=== PATIENT | male | born 1960 | race Caucasian/White ===

== ENCOUNTER 2020-05-02 10:53 | Inpatient (IN) | payer OTHER, MEDICAID ==
[~2020-05-02] VITALS: Ht 165.1 cm; Wt 89.6 kg
[2020-05-02 13:57] VITALS: BP 114/81
--- NOTE | 2020-05-02 15:25 | NUR ---
Admitted via stretcher from at 11 am. Alert and oriented X4. States was having suicidal ideation. His plan was to get a gun. He is suicidal due to living arrangement and does not like his living facility. Denies suicidal ideation currently. Uses walker. Cooperative with assessment. Breath sounds clear, no cough, heart rate regular, abdomen soft, denies tenderness on palpation. Respirations regular. Uses brief but goes to the bathroom. Says is a diabetic but is controlled with diet. Blood sugar at 79. Monitored for excessive water drinking. No pedal edema. No wounds or open areas noted. Speaks slowly but responses are appropriate. Has a history of TBI, Bipolar and Schizophrenia diagnosis, hypertension, hypperlipedemia, hyperthyroidism, COPD and Dibetes Type 11. VSS. Denies HI or AVH. States has left shoulder pain at times. Says is a former smoker and drinker. Oriented to unit. Is eager to participate in groups and patient activities. Behavior monitored. Euthymic. Says last bowel movement was 04/30/20.
[2020-05-02 19:24] VITALS: BP 122/76
--- NOTE | 2020-05-03 02:00 | NUR ---
05-02-20 CARE TRANSFERRED 1899 OBSERVED PT SITTING IN DAY ROOM SOCIALIZING WITH OTHERS. 2024 PT AAOX3, VSS, RR EVEN AND NONLABORED ON RA, PT DENIES SI/HI. PT REPORTS PAIN IN RIGHT SHOULDER RATES 8 ON 0-10 SCALE, PT REMAINES CALM AND COOPERATIVE, PT WILLING ENGAGES IN CONVERSATION. DURING MEDICATION ADMIN PT HAD NO DIFFICULTIES. LATER PT SUPINE RESTING WITH EYES CLOSED IN BED. PT NO S/S OF ACUTE DISTRESS NOTED, PT WILL CONTINUE TO BE MONITOR PER [facility] PROTOCOL.
[2020-05-03 08:49] VITALS: BP 121/70
--- NOTE | 2020-05-03 14:46 | NUR ---
Assumed care 0700. Pt. wished to sleep in a little later which he did eating about 45 minutes later than therest of the patients. Has been self sufficient in toileting-denying the need for help. Denies SI/Hi/AH/VH. No c/o pain.
[2020-05-03 19:20] VITALS: BP 143/79
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
--- NOTE | 2020-05-04 04:06 | NUR ---
05-03-20 CARE TRANSFERRED 1900 OBSERVED PT SITTING IN DAY ROOM SOCIALIZING WITH OTHERS. 2004 PT AAOX3, VSS, RR EVEN AND NONLABORED ON RA. PT REPORTED HAVING L. SHOULDER PAIN RATED 8 ON 0-10 SCALE. PT DENIES SI/HI. PT PRESENTS HAPPY, CALM AND COOPERATIVE THROUGHOUT NURSING ASSESSMENT. DURING MEDICATION ADMIN PT HAD NO DIFFICULTIES AND WAS PROFICIENT WITH SELF CARE WITH EYE DROPS. LATER NOTED PT RESTING SUPINE IN BED WITH EYES CLOSED, PT WILL CONTINUE TO BE MONITOR PER [facility] PROTOCOL.
[2020-05-04 09:01] VITALS: BP 97/50
--- NOTE | 2020-05-04 11:21 | NUR ---
Alert and orientated X 4. Denies SI/HI at this time. When asked if he had any concerns at this time, he states he would like his toenails clipped and his bed made. Fingernails and toenails clipped. Ambulating around unit with walker with regular, steady gait. Currently sleeping soundly in recliner. Breath sounds clear. Reg HR auscultated. Color pink with brisk capillary refill and palpable peripheral pulses. Independent with voiding. Active bowel sounds over soft, rounded abdomen. States he had stool yesterday. Calm and cooperative.
--- NOTE | 2020-05-04 17:43 | NUR ---
SW met with Pt to complete assessment. Pt talked about his placement and asked if SW could help him find another placement. SW informed that since he has a placement that can meet his needs SW will not be locating another facility for the Pt. SW informed when Pt goes back to his placement he could speak with SW there and his family on finding him a new placement. Pt became upset stating " fine I will just find a way to kill myself, I don't have a gun or anything". When SW asked if he had a plan Pt denied. Pt stated " I dont want to be locked up in that place I want to go to an assisted living in [facility], can we look some up while I am in your office". EMILIA again explained to the Pt the goal of going back to [facility]. Pt stood up and started to walk out of SW office, then sat and asked if SW could find him another place. EMILIA ended the meeting and informed Pt's discharge plan.
[2020-05-04 19:42] VITALS: BP 139/76
[2020-05-05 01:10] VITALS: BP 139/76
--- NOTE | 2020-05-05 03:23 | NUR ---
Assumed care on 05/04/20 @ 19:15, in the mileu, ambulating from room to dayroom. Socializing with peers and displaying a bright affect when addressed by staff. A&O x 3. Oriented to Person, date and place. Reports x3 BM yesterday and a small BM today. Retired to bed after TV was turned off @ 2200, requested that his covers be pulled up after he got in bed, this care provided. Has slept soundly up to this writing, bed in low position, respirations even and unlabored, eyes closed.
[2020-05-05 07:35] VITALS: BP 98/49
--- NOTE | 2020-05-05 13:48 | NUR ---
EMILIA met with the Pt and the DON at [facility] [place], in and effort to air grivences and begin to work out some issues. The Pt;'s issues consisted of his bed not being made, the food not being good, staff not answering call lights in 10 mins. [facility] expressed the Pt is not patient and want his request met immediatley. SW spoke with the Pt about resonable expectations for staff at the senior living and respect. The Pt became upset stating " kin folks every body is kin folks and they don't like me because I am [facility]. The Pt then got up and walked out to the SW office. SW ended the call with [facility] then went to the [facility] area to talk to the Pt. The Pt continued to express dicontentment with the senior living. SW provided emotional support and worked with Pt through what he can and cannot control. SW encouraged Pt to speak to the SW at the senior living in an effort to resolve conflicts that may arise with staff or conditions at the facility. Pt will be d/c 05/08/2020 @ 1300. [facility] of will provide transportation. @
--- NOTE | 2020-05-05 14:23 | NUR ---
Alert and orientated X4. Up and ambulating with walker with slow, steady gait. Denies SI/HI. Conversive with staff and peers, participating in groups. Eating 100% of meals without assistance. Breath sounds clear. Reg HR auscultated. Color pink with brisk capillary refill and palpable peripheral pulses. Independent with voiding. Active bowel sounds over soft, rounded abdomen.
[2020-05-05 19:16] VITALS: BP 154/91
[2020-05-05 21:41] VITALS: BP 154/91
--- NOTE | 2020-05-06 02:52 | NUR ---
Assumed care of patient this pm shift. Patient in good spirits sitting in the mileu. Patient is alert and oriented x3. Patient takes medications whole with thin fluids. Patients affect is happy. Patient ambulates with a walker and has a steady gait. Patient can toilet himself. Patients assessment shows no signs of acute distress. Patient is very pleasant and cooperative. Patient requires some assistance with getting ready for bed. No concerns voiced at this time. We will continue to monitor per hospital policy.
[2020-05-06 07:15] VITALS: BP 113/54
--- NOTE | 2020-05-06 09:05 | NUR ---
ASSUMED CARE AT 0900 THIS MORNING. PT. UP, DRESSED AND IN THE DINING FOR BREAKFAST. HE WAS PLEASANT AND COOPERATIVE WITH THIS RN. HE TOOK HIS MORNING MEDICATIONS WITHOUT PROBLEMS NOTED. WHILE ASSESSING PT., HE STARTED RUBBING THIS RN'S BACK AND THEN ASKED, "ARE YOU ?" THIS RN REPLIED THAT I AM , BUT WE CAN BE FRIENDS. HE ACCEPTED THIS RESPONSE AND WENT TO HIS ROOM. HE HAS BEEN CALM WHILE ON THE UNIT. HE IS EATING WELL.
[2020-05-06 19:30] VITALS: BP 140/67
--- NOTE | 2020-05-07 02:18 | NUR ---
05-06-20 [facility] 1899 OBSERVED PT SITTING IN DAY ROOM SOCIALIZING WITH OTHERS. 1924 PT AAOX4, VSS, RR EVEN AND NONLABORED ON RA. PT DENIES SI/HI AND PAIN. PT REMAINED CALM AND COOPERATIVE THROUGHOUT NURSING ASSESSMENT. DURING MEDICATION ADMIN PT HAD NO DIFFICULTIES. LATER PT SUPINE IN BED RESTING WITH EYES CLOSED. ZERO S/S OF ACUTE DISTRESS NOTED, PT WILL CONTINUE TO BE MONITOR PER [facility] PROTOCOL.
[2020-05-07 07:44] VITALS: BP 101/55
--- NOTE | 2020-05-07 12:41 | NUR ---
Assumed care of patient at 0700. Up ad natividad. Denies SI/HI/AVH. Pleasant. Engages in conversation. Good eye contact. Euthymic. Grooming and hygiene appropriate. Speaks slowly but clearly. Took a nap mid morning. Gait steady. Ambulates with walker. Good appetite. Requesting coffee and water often. Set limits on amount of fluids given. Lungs clear. Respirations even. No respiratory distress. Alert and oriented X4. Denies pain or any discomfort.
--- NOTE | 2020-05-07 14:53 | NUR ---
PT. HAS DRANK 2 OF THE 32 OZ CUPS OF WATER. HE HAS HAD TWO 16 OZ CUPS OF COFFEE. HE ALSO HAS HAD SEVERAL MILKS, JUICES ON HIS MEAL TRAYS. HE ASKED FOR ANOTHER LARGE CUP OF COFFEE AFTER HAVING HIS SNACK. THIS TRANSFER IRON OPERATOR ASKED HIM TO WAIT A WHILE (ABOUT 1/2 HOUR) SNACKS HAVE ALREADY BEEN OUT AND HE HAS DRANK ENOUGH FOR THE MOMENT. THE PT. BECAME UPSET WITH THIS TRANSFER IRON OPERATOR. HE STATED, "I'M A SIMPLE MAN AND I DON'T OVER DRINK MY FLUIDS". HE GOT UPSET, TOOK HIS CUP AND WENT TO HIS BEDROOM.
--- NOTE | 2020-05-07 16:32 | NUR ---
Kay faxed updated including COVID results to [facility]
[2020-05-07 19:46] VITALS: BP 113/80
--- NOTE | 2020-05-08 01:28 | NUR ---
05-07-20 CARE TRANSFERRED 1899 OBSERVED PT SITTING IN DAY ROOM WATCHING TV. 1950 PT AAOX4, VSS, RR EVEN AND NONLABORED ON RA. PT DENIES ANY PAIN AND SI/HI. PT HAS REMAINED CALM AND COOPERATIVE, PT REPORTS HE IS HAPPY ABOUT GOING BACK HOME FRIDAY. DURING MEDICATION ADMIN PT HAD NO DIFFICULTIES. LATER PT WAS ASKING ABOUT HIS BLACK SHORTS, PT WAS REASSURED THAT THEY WERE IN THE DRYER AND HE WOULD HAVE THEM TOMORROW. PT BED WAS REPOSITION FOR COMFORT, DURING NEXT ROUND NOTED PT LEFT SIDE LYING RESTING IN BED WITH EYES CLOSED. ZERO S/S OF ACUTE DISTRESS NOTED, PT WILL CONTINUE TO BE MONITOR PER [facility] PROTOCOL.
[2020-05-08 07:34] VITALS: BP 100/61
[2020-05-08] MEDS ORDERED: XALATAN2.5 ML OPHTHALMIC (11:37)
[2020-05-08] MEDS ORDERED: ATORVASTATIN CA10 MG PO (11:38)
[2020-05-08] MEDS ORDERED: DEPAKOTE500 MG PO (11:39)
[2020-05-08] MEDS ORDERED: LYRICA 75 MG CA75 MG PO (11:39)
[2020-05-08] MEDS ORDERED: VITAMIN B-6100 MG PO (11:41)
[2020-05-08] MEDS ORDERED: SYNTHROID25 MC1 PO (11:42)
[2020-05-08] MEDS ORDERED: METFORMIN HCL500 MG PO (11:43)
[2020-05-08] MEDS ORDERED: PROTONIX 20 MG20 MG PO (11:43)
[2020-05-08] MEDS ORDERED: ZYPREXA 5 MG TAB5 M1 PO ×2 (11:44)
[2020-05-08] MEDS ORDERED: LEXAPRO 10 MG T10 MG PO (11:45)
[2020-05-08] MEDS ORDERED: TRAZODONE HCL50 MG PO (11:45)
[2020-05-08] MEDS ORDERED: FLOMAX0.4 MG PO (11:46)
[2020-05-08] MEDS ORDERED: COZAAR 25 MG TA25 M2 PO (11:46)
[2020-05-08] MEDS ORDERED: PT HOME MEDICATION MISCELL (11:51)
--- NOTE | 2020-05-08 14:07 | NUR ---
0700 ASSUMED CARE OF PATIENT, PATIENT IN BED AT THAT TIME. 0735 PATIENT OUT TO DAYROOM AMB WITH WALKER WITH STEADY GAIT. PATIENT ATE 100% OF BREAKFAST. MEDICATIONS GIVEN WHOLE WITHOUT DIFFICULTY. VS STABLE BP-100/61 P-83 RESP-18 TEMP-98.7 O2 SATS- 91% PATIENT ASKING FOR FLUIDS AFTER PATIENT HAS BEEN TOLD TO [facility]ICT FLUIDS. PATIENT UNABLE TO COMPREHEND. PATIENT IS ALERT AND OIENTED X4. NO C/O PAIN. PATIENT IS CALM AND COOPERATIVE. PATIENT ATE 100% OF LUNCH. DC INSTRUCTIONS GIVEN TO PATIENT BY STAFF. PATIENT DC AT 1305 VIA WC TO TRANSPORT VAN. ACCOMPANIED BY STAFF. BELONGING IN [facility] AT TIME OF DC. FACILITY CALLED AND REPORT GIVENTO TO RN.
--- NOTE | 2020-05-10 09:12 | D ---
[facility] [address] [address] DISCHARGE SUMMARY Name: NORIS DANIELS Room #: 521B-B [facility] IN M.R.#: [id number] Admission: 05/02/20 Attend Phys: Ron Rust DO Discharge: 05/08/20 Date of : 62 Report #: [id number] THIS REPORT FOR: cc: BRISA - Family physician unknown FAM - Family physician unknown Ron Rust DO ~ THIS REPORT FOR: //name// CC: Ron LEDEZMA unknown DATE OF SERVICE: 05/08/2020 INPATIENT PSYCHIATRIC DISCHARGE SUMMARY ATTENDING PHYSICIAN: Ron Rust DO ATTENDING PSYCHIATRIST: At discharge, Chelsea Hrut MD ABATTOIR SUPERVISOR: Yaneth Tyler MD DISCHARGE DIAGNOSES: As follows: Bipolar 1 disorder episode, unspecified, 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 MEDICAL DIAGNOSES: Include mild obesity, hyperlipidemia, hypothyroidism, hypertension, benign prostatic hypertrophy. DISCHARGE PLAN: The patient is discharged to [facility] in [place], [place], where he has had for long-term care. The patient is his own person and has no guardian or DPOA unfortunately and nor he wishes to appoint. He denies tobaccoism. Psychiatric and medical care will be provided by [facility]. [place], [place]. DISCHARGE MEDICATIONS: As follows: Tamsulosin 0.4 mg p.o. b.i.d. for BPH; atorvastatin 20 mg p.o. daily for hyperlipidemia; losartan 25 mg p.o. daily for hypertension; Depakote sodium 1000 mg p.o. b.i.d., last blood level on 05/03/2020 was 82; Lyrica 75 mg p.o. b.i.d. for neuropathy; Lexapro 10 mg p.o. daily for depression; trazodone 75 mg p.o. at bedtime for sleep; olanzapine 15 mg p.o. at bedtime for psychosis and mood stabilization and 5 mg p.o. daily; latanoprost drops, ophthalmic, both eyes at bedtime, 1 drop each eye, 2.5 mL drops;, pantoprazole 40 mg p.o. daily for GERD; metformin 500 mg p.o. b.i.d. with meals for diabetes; levothyroxine 25 mcg p.o. daily for hypothyroidism; pyridoxine 100 mg p.o. daily; vitamin B6 for supplementation. The patient ambulates with walker. He continues to use assistive device. Significant laboratories this admission, he was accepted from [facility], [place] [address] DISCHARGE SUMMARY Name: NORIS DANIELS Room #: 521B-B [facility] IN ..#: [id number] Admission: 05/02/20 Attend Phys: Ron Rust DO Discharge: 05/08/20 Date of : 62 Report #: [id number] so they were normal. Glucose the day of discharge with fasting was 81. REASON FOR ADMISSION: Back on the or so april is as follows: A 59-year-old male, uncertain ethnic origin, reportedly been feeling suicidal and was referred from [facility] Emergency Room. He had actually been admitted medically as well for dehydration and hyponatremia, so he was not from the ER as a medical admission from , but had psychiatric admissions earlier beginning of this year. HOSPITAL COURSE: The patient was admitted to Geriatric Psychiatry Unit and became early obvious, the patient was utilized in this admission to get a different placement at the [facility] in [place]. It was explained to the patient that particularly given the COVID-19 environment, it would be impossible to get him a placement. The patient was prepared that it was not appropriate use of the psychiatric hospitalization. When he was asked about suicidality, he would at times be vague in terminal answers yet during his first several days of admission, he had made no attempts to self-harm and neglect himself. He was kept over the weekend for good measure and discharged to [facility] of [place], [place] on . MENTAL STATUS EXAMINATION: Deferred to Dr. Hurt who discharged the patient. VITAL SIGNS: On the day of discharge, temperature 37.1, pulse 83, respirations 18, BP 100/61, O2 sat 91%. Basically, the only medication changes this admission was increasing from 500 in morning and 1000 to Depakote 2000 twice a day. His olanzapine have been increased in , so I kept that up at a total of 20 mg daily. The patient will need ongoing psychiatric followup. VITAL SIGNS: Temperature 37.1, pulse 80, respirations 18, BP 100/61, O2 sat 91%, that was 0734 this morning. PROGNOSIS: For this patient is guarded given multiple comorbidities appearing chronic mental health problems. Recommendations for the facility, consideration for pursue the guardianship, conservatorship. <ELECTRONICALLY SIGNED> By: Ron Rust DO 05/10/20911 07 33 Ron Rust DO /nt
== END 2020-05-08 13:05 | DRG 885 ==
LOC: SBH 10:53
PROVIDERS: ADMIT Psychiatry & Neurology Psychiatry; ATTEND Psychiatry & Neurology Psychiatry
DX: F31.9 Bipolar disorder, unspecified (principal); R45.851 Suicidal ideations; E66.9 Obesity, unspecified; E78.5 Hyperlipidemia, unspecified; E03.9 Hypothyroidism, unspecified; N40.0 Benign prostatic hyperplasia without lower urinary tract symptoms; J44.9 Chronic obstructive pulmonary disease, unspecified; I10 Essential (primary) hypertension; F20.9 Schizophrenia, unspecified; F29 Unspecified psychosis not due to a substance or known physiological condition; Z20.828 Contact with and (suspected) exposure to other viral communicable diseases; Z68.32 Body mass index [BMI] 32.0-32.9, adult; Z87.820 Personal history of traumatic brain injury; Z87.891 Personal history of nicotine dependence
CPT/HCPCS: 10880

== ENCOUNTER 2021-01-07 00:34 | Inpatient (IN) | payer OTHER, MEDICAID ==
[~2021-01-07] VITALS: Ht 165.1 cm; Wt 99.9 kg
[~2021-01-07 00:34] MED LIST: ATORVASTATIN CA10 MG PO; COZAAR 25 MG TA25 M2 PO; DEPAKOTE500 MG PO; FLOMAX0.4 MG PO; LEXAPRO 10 MG T10 MG PO; LYRICA 75 MG CA75 MG PO; METFORMIN HCL500 MG PO; PROTONIX 20 MG20 MG PO; PT HOME MEDICATION MISCELL; SYNTHROID25 MC1 PO; TRAZODONE HCL50 MG PO; VITAMIN B-6100 MG PO; XALATAN2.5 ML OPHTHALMIC; ZYPREXA 5 MG TAB5 M1 PO
[2021-01-08 03:28] VITALS: BP 132/71
--- NOTE | 2021-01-08 04:11 | NUR ---
Pt admitted to [facility] @ 0105am for SI with depression from [facility], Pt is A/O x 3, very pleasant, pt is impulsive, and does not like sudden changes, did not want chair moved initially from his room, Pt requires assist with standing up but once standing is pretty stable with his gait using the walker. Pt tends to forget limitations, Pt resides at [facility] of for the last two years and voiced SI to the staff at the [facility] but did not voice SI on initial admission assessment but pt does endorse depression for the last 6 months, coping mechanism for depression pt voices he uses is exercise. Pt red wallet with ID, securiti card x 2, several other cards and 91 dollars sent with security. Money counted in pt presence. Physical assessment, A/O x3, lung sounds are clear, HRR, pulses +, Abd soft NT, Active BS x 4, + 1 edema noted to bilateral lower edema, skin assessment completed and no current wounds noted and skin is warm, dry and intact, pt had assistance from PCT to BR, Pt initially ambulating into day room and received a snack once snack received pt was ready to lie down. Pt does voice feelings of hopelessness but does not endorse hallucinations currently. Denies HI, Pt has a medical Hx of DM II but does not require insulin and is not currently being treated for Diabetes, Pt is currently on a regular diet.
[2021-01-08 08:47] LABS: ABSOLUTE NEUTROPHILS 4.9 thou/uL (1.4-8.2); BASOPHILS 0.4 % (0.0-2.0); EOSINOPHILS 0.3 % (0.0-3.0); HEMATOCRIT 36.6 % (42.0-52.0); HEMOGLOBIN 11.9 gm/dL (14.0-18.0); LYMPHOCYTES 26.9 % (24.0-44.0); MCH 30.8 pg (26.0-34.0); MCHC 32.5 g/dL (28.0-37.0); MCV 94.8 fL (80.0-100.0); MONOCYTES 17.7 % (1.0-8.0); PLATELET COUNT 152 thou/uL (150-400); POLYS 54.7 % (36.0-66.0); RBC 3.86 mil/uL (4.50-6.00); RDW 13.6 % (10.5-14.5); WBC 8.9 thou/uL (4.0-11.0)
[2021-01-08 08:51] VITALS: BP 132/82
[2021-01-08 09:08] LABS: ANION GAP 11 mmol/L (7-16); BUN 19 mg/dL (7-18); CALCIUM 9.4 mg/dL (8.5-10.1); CHLORIDE 108 mmol/L (98-107); CHOLESTEROL 183 mg/dL (<200); CO2 24 mmol/L (21-32); CREATININE 1.5 mg/dL (0.7-1.3); GLUCOSE 79 mg/dL (74-106); HDL CHOLESTEROL 44 mg/dL (>40); LDL CHOLESTEROL 113 mg/dL (<100); POTASSIUM 5.2 mmol/L (3.5-5.1); SODIUM 143 mmol/L (136-145); TC:HDL 4.2 Ratio (Not establshd); TRIGLYCERIDE 132 mg/dL (<150); VLDL 26 mg/dL (<40)
[2021-01-08 10:50] VITALS: BP 132/82
--- NOTE | 2021-01-08 13:31 | NUR ---
1330 RESUMMED CARE FROM OVERNIGHT SHIFT THIS AM, PATIENT IN ROOM LYING QUIET. PATIENT ALERT ORIENTED TIMES 4 PATIENT DENIES SI/HI/AH/VH AT PRESENT. PATIENT CAME TO DAY ROOM ATE BREAKFAST TOOK MEDICATION WITHOUT INCIDENCE. PATIENTS ABDOMEN SOFT BOWEL SOUNDS PRESENT. PATIENTS LUNGS CLEAR PATIENT CALM COOPERATIVE; PATIENT HAS BEEN PARTICIPATES IN GROUPS PATIENT STATES "HE HATES HIS PLACEMENT." WILL CONTINUE TO MONITOR PATIENT FOR SAFETY AND BEHAVIORS.
[2021-01-08 19:14] VITALS: BP 117/63
--- NOTE | 2021-01-09 01:27 | NUR ---
Assume care of patient at approx 1920 hrs. Patient observed sitting in arlette chair in day room watching tv. Patient has good eye contact and is smiling. Patient wears glasses. He denies any pain, SI, HI, Depression or anxiety. He states he feels much better now that he is here at this hospital. Patient ambulates with walker and also wears a brief. He toilets himself. Pt has been compliant with all care and meds this shift. he is social with staff and peers and very friendly. Will continue to monitor and follow plan of care. Q 12 min safety checks per protocol.
[2021-01-09 03:05] LABS: GLYCOHEMOGLOBIN (HGB A1C) 5.7 % (4.8-5.6)
[2021-01-09 09:17] VITALS: BP 129/61; BP 94/46
--- NOTE | 2021-01-09 09:48 | NUR ---
Admit to [facility], depression/SI. Hx diet control DM, A1C is 5.7. LDL slight increase 113, on lipitor. Eating 100% of meals. Wt hx shows 197 lb in 04/2020. This admit has 2 different wts of 200 lb vs 220 lb. Will follow wt and intake trends, otherwise pt presents at low nutrition risk. Can continue regular diet at this time.
--- NOTE | 2021-01-09 12:22 | NUR ---
Received awake on bed. Due medications given as prescribed, able to swallow meds w/o difficulty. On room air. Vital signs stable. On regular diet- tolerating well; no nausea, no vomiting and no abdominal pain noted; encouraged and assisted in eating and drinking. Continent of bowel and bladder. Ambulating in the hallway with walker; falls bundle in place. No complains of pain made during assessment. No verbalizations of SI/HI noted. No visual, auditory and tactile hallucinations noted. No complains of chest pain, crushing sensation and heaviness. Assisted in ADLs. Cooperative in therapies. To continue monitoring patient.
[2021-01-09 19:36] VITALS: BP 146/91
--- NOTE | 2021-01-10 03:35 | NUR ---
ASSUMED CARE OF PATIENT AT 1900 01/09/2021. MR. DANIELS WAS SITTING IN THE DAYROOM WATCHING TELEVISION. HE IS A&O X4, INTERACTING WITH STAFF AND PEERS. NO DIFFICULTY WITH SWALLOWING MEDS WHOLE. LUNGS CTA, ABD SOFT, BS +, SKIN W&D. PATIENT DENIES SI/HI/AVH. GAIT WITH WALKER REMAINS SLOW BUT STEADY. TOLIET SELF X 3 DURNING SHIFT. STAFF WITH CONTINUE TO MONITOR PER [facility] PROTOCOL.
[2021-01-10 06:15] LABS: CREATININE 1.6 mg/dL (0.7-1.3)
[2021-01-10 08:00] VITALS: BP 135/60
[2021-01-10 09:03] VITALS: BP 135/60
--- NOTE | 2021-01-10 17:07 | NUR ---
Krista calm and cooperative, had meals, no n/v; sitting in the dinning room, interacting with the staff; walking at times in the hallway with a walker, steady. having dinner now in the dinning area, will keep monitoring.
--- NOTE | 2021-01-10 17:36 | NUR ---
Patient refused his insulin, psychiatrist has been reported to about it.
[2021-01-10 20:00] VITALS: BP 133/79
[2021-01-10 20:20] VITALS: BP 133/79
--- NOTE | 2021-01-10 22:42 | H ---
[facility] [place] [address] [address] [place] [address] HISTORY AND PHYSICAL Name: NORIS DANIELS Room #: 521B-B ADM IN M.R.#: [id number] Admission: 01/08/21 Attend Phys: Kamaljit Rust DO Discharge: Date of : 62 Report #: [id number] THIS REPORT FOR: cc: [facility] - Clinic physician unknown [facility] - Clinic physician unknown Kamaljit Rust DO ~ DOC #: [id number] KAMALJIT Rust DO DATE OF SERVICE: 01/08/2021 INPATIENT PSYCHIATRIC EVALUATION ATTENDING PSYCHIATRIST: Kamaljit Rust DO. MEDICAL CONSULTANTS: Gerardo Rangel M.D. and JAXON Starks. SOURCES OF INFORMATION: Interview with the patient, records from the [facility] ER, limited records from [facility]. CHIEF COMPLAINT: Depression. HISTORY OF PRESENT ILLNESS: This is a 60-year-old male who presented early Friday to the [facility] ER by ambulance from his nursing facility for concerns of depression for almost a year, 6-9 month history of worsening of mood. Interestingly, he was last hospitalized on the Senior Behavioral Health Unit at [facility] in 04/2020, so really right before this. States he believes this is secondary to chronic shoulder pain as well as unhappiness with current facility. Of note, when the patient [facility] [place], he was advised that he would need to seek a new facility with the help of social work staff from [facility]. He reports he was being "neglected" at [facility]. When I asked him to describe this, he said he would press the call button and no one would come for an extended period of time like 30 minutes. The patient endorsed to the ER history of bipolar 1 disorder, schizophrenia. He has been medication compliant and endorsed a plan at of shooting himself. He reported previous episodes of suicidal attempt by medication overdose. He denied access to firearms and denied any intent today. REVIEW OF SYSTEMS: From : CONSTITUTIONAL: Negative for chills and fever. HEENT: Negative for sore throat. Eyes: Negative for visual disturbance. RESPIRATORY: Negative for shortness of breath. CARDIOVASCULAR: Negative for chest pain. GASTROINTESTINAL: Negative for abdominal pain, nausea and vomiting. GENITOURINARY: Negative for dysuria. [facility] [address] [place] [address] HISTORY AND PHYSICAL Name: NORIS DANIELS Room #: 521B-B ADM IN M.R.#: [id number] Admission: 01/08/21 Attend Phys: Kamaljit Rust DO Discharge: Date of : 62 Report #: [id number] MUSCULOSKELETAL: Positive for arthralgias. Negative for back pain. SKIN: Negative for rash. NEUROLOGIC: Negative for headaches. PSYCHIATRIC: Positive for suicidal ideation in the ER. Denies that today. Interestingly, negative for agitation and confusion. Also, of note from the ER, the patient was not nervous or anxious. ALLERGIES: TO NEURONTIN, LITHIUM, REMERON. PAST MEDICAL HISTORY: COPD, diabetes mellitus, obesity, unspecified allergy. PSYCHIATRIC HISTORY: Bipolar 1 disorder, schizophrenia. Additional medical morbidities: Generalized headaches, high cholesterol, hypertension, thyroid disease. PAST SURGICAL HISTORY: No pertinent surgical history was noted at . SOCIAL HISTORY: He reports being a former smoker, smoked a pack and a half a day for 35 years and 7.4 years since quitting smoking, smoked in 2013. No alcohol. No recreational drug use. FAMILY HISTORY: Parkinson's disease in father. Systemic lupus erythematosus in maternal aunt. Physical exam was noted for speech mildly delayed, otherwise normal. LABORATORY DATA: From today on , white count 7.6, H and H 12.4 and 36.0, platelet count 145, slightly thrombocytopenic. Absolute monocyte count was high at 1.21. Electrolytes, mild abnormalities. Sodium 132, potassium 4.7, chloride 98, glucose 153, BUN 16, creatinine elevated at 1.43, calcium 9.8, total protein 7.0, total bilirubin 0.3, albumin 4.1, alkaline phosphatase 70, SGOT 24, ALT 14, anion gap 10. EGFR qik-Bhwzlvs-Bmraohcd 51. CK 237. Urinalysis was normal. TSH normal at 3.46. Urine drug screen was negative. Valproic acid level was normal at 86. No radiology at . EKG rate 67. Rhythm sinus. QTc 417. Interpretation is regular rate, regular rhythm, normal axis, no evidence of acute ST or T-wave changes. I reviewed the EKG, the 12-lead_ from [facility]. There is some artifact present, but I agree normal sinus rhythm, largely normal EKG. MEDICATIONS: List from [facility], atorvastatin 20 mg daily, buspirone 15 mg by mouth twice a day, Depakote delayed release 750 two times a day, latanoprost 0.005% one drop in both eyes at bedtime, levothyroxine 25 mcg by mouth in the morning. Lexapro 20 mg daily, losartan 25 mg daily, hold for SBP [facility] [address] [place] [address] HISTORY AND PHYSICAL Name: NORIS DANIELS Room #: 52-B ADM IN M.R.#: [id number] Admission: 01/08/21 Attend Phys: Kamaljit Rust, DO Discharge: Date of : 62 Report #: [id number] less than 110. Mag oxide 400 mg daily, olanzapine 15 mg at bedtime and 5 mg in the morning, Lyrica 75 mg by mouth two times a day for pain, B6 100 mg daily, Spiriva inhaled one time a day for cough, tamsulosin 0.4 mg p.o. daily, trazodone 75 mg at bedtime for insomnia, Tylenol 650 q. 6 hours p.r.n. pain. Physician at longterm I actually do not see listed. There are not any behavior notes from [facility]. VITAL SIGNS: Today, temperature 36.5, pulse 76, respirations 18, BP 132/82, O2 sat 98%. MUSCULOSKELETAL: Seated in a Vicenta chair. Gait not tested. He is ambulatory. MENTAL STATUS EXAMINATION: This is a well-developed, well-nourished, obese male appearing probably older than stated age. Attention fair. Concentration fair. Speech slow, delayed. Thought process: Linear and goal directed. Thought content: Focused on the present. No psychomotor agitation. Slight psychomotor retardation. Mood okay, appearing euthymic, congruent. Denied SI, HI. Denied auditory, visual, or tactile hallucinations. Memory not formally tested, but I believe he has had mild neurocognitive results from his previous admission. Insight limited. Judgment limited. Fund of knowledge below average. FORMULATION: A 60-year-old male sent out from [facility]. The patient has a history of bipolar disorder. The patient was discharged with bipolar 1 disorder, unspecified and mild intellectual disability in 04/2020. DIAGNOSES: At this time bipolar 1 disorder, most recent episode depressed, severe, 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 Internal Medicine kind of issues including mild acute kidney injury, hyperkalemia, was given a dose of Veltassa, diabetes mellitus, hypertension, hypothyroidism, hyperlipidemia and again obesity with a BMI of 36. PLAN: The patient is admitted voluntarily to the senior behavioral health unit. Evaluate stabilize. Regarding his medications of several comments, his Depakote level appears therapeutic. He is on 20 mg a day of olanzapine. This would roughly be maximal therapy for bipolar disorder, not just in a maintenance phase, but even in acute phase. I am concerned that his situation is that of dysfunctional coping skills, currently here at [facility], levothyroxine 25 mcg daily, atorvastatin 20 mg p.o. daily, buspirone 15 mg p.o. b.i.d., Depakote 750 mg p.o. b.i.d., Lexapro 20 mg p.o. daily, magnesium oxide 400 mg p.o. daily, olanzapine 5 mg in the morning and 15 mg at bedtime, vitamin B6 100 mg p.o. daily, tamsulosin 0.4 mg p.o. daily, latanoprost drops each eye and trazodone 75 mg . [facility] [address] [place] [address] HISTORY AND PHYSICAL Name: NORIS DANIELS Room #: 521B-B ADM IN M.R.#: [id number] Admission: 01/08/21 Attend Phys: Kamaljit Rust, Discharge: Date of : 62 Report #: [id number] I am inclined to discontinue the BuSpar just because with the abnormality of other psychopharmacology going, I do not see it being helpful, it is serotonin pathway agent, so we will keep the patient here for the next 3-4 days to make sure his mood stabilized and this is a case where this is probably given him respite. STRENGTHS: He is insured, has the nursing facility he lives at. WEAKNESSES: Poor coping skills, multiple medical comorbidities, limited. little outside social support. Greater than 60 minutes spent on this case, greater than 50% of the time spent on reviewing records, coordination of care. DO SALUD Lui/FRANCISCO/MARCOS <ELECTRONICALLY SIGNED> By: Kamaljit Rust DO 01/10/21 2242 1213 1424 Kamaljit Rust DO /nt
--- NOTE | 2021-01-11 00:54 | NUR ---
ASSUMED CARE OF PATIENT AT 1900 01/10/2021. HE IS A & 0 X 4, MOOD ELEVATED, DENIES SI, HI OR AVH. WATCHING TELEVISION IN DAYROOM, IN GUSTABO-CHAIR WITH LEGS ELEVATED, STATED "I'M WATCHING THE MOVIE AND EATING MY SNACK TODAY". SKIN WARM AND DRY, ABD SOFT + BS, HEART RRR. PATIENT STATES HE MIGHT BE GOING HOME TOMORROW. CONTINUES WITH STEADY AMBULATION WHEN USING WALKER. DENIES ANY PHYSICAL OR MENTAL ISSUES/NEEDS AT THIS TIME. STAFF WILL CONTINUE TO MONITOR PER [facility] PROTOCOL.
[2021-01-11 07:53] LABS: CALCIUM 9.3 mg/dL (8.5-10.1); CREATININE 1.3 mg/dL (0.7-1.3); POTASSIUM 4.8 mmol/L (3.5-5.1)
[2021-01-11 08:44] VITALS: BP 125/60
[2021-01-11] MEDS ORDERED: DEPAKOTE 250MG250 M1 PO (09:46)
[2021-01-11] MEDS ORDERED: LEXAPRO20 MG PO (09:47)
[2021-01-11] MEDS ORDERED: MAGNESIUM400 MG PO (09:48)
[2021-01-11 10:40] VITALS: BP 125/60
--- NOTE | 2021-01-11 12:04 | NUR ---
1200 RESUMMED CARE FROM OVERNIGHT SHIFT THIS AM, PATIENT ALERT ORIENTED TIMES 4. PATIENT DENIES SI/HI/AH/VH AT PRESENT PATIENT ATE BREAKFAST TOOK MEDICATION WITHOUT INCIDENCE. PATIENTS ABDOMEN SOFT BOWEL SOUNDS PRESENT PATIENTS LUNGS CLEAR. PATIENT CALM COOPERATIVE PATIENT HAS NOT DISPLAYED ANY BEHAVIORS. PATIENT IS DISCHARGING TO [facility], I ATTEMPTED TWICE TO CALL REPORT TO FACILITY. PATIENT DISCHARGED WITH BELONGING AND DISCHARGE INSTRUCTIONS.
--- NOTE | 2021-01-12 21:09 | D ---
[facility] [address] [address] DISCHARGE SUMMARY Name: NORIS DANIELS Room #: 521B-B DIS IN M.R.#: [id number] Admission: 01/08/21 Attend Phys: Kamaljit Rust DO Discharge: 01/11/21 Date of : 62 Report #: [id number] THIS REPORT FOR: cc: [facility] - Clinic physician unknown [facility] - Clinic physician unknown Kamaljit Rust DO ~ DOC #: [id number] KAMALJIT Rust DO DATE OF SERVICE: 01/11/2021 INPATIENT PSYCHIATRIC DISCHARGE SUMMARY ATTENDING PSYCHIATRIST: Kamaljit Rust DO RELOCATION SPECIALIST: Gerardo Rangel MD DISCHARGE DIAGNOSES: Bipolar 1 disorder, most recent episode depressed, improved now. The patient has a history of traumatic brain injury. Additionally, medical comorbidities include hyperkalemia, resolved; acute renal failure, largely resolved; diabetes, diet controlled at present; hypertension; hypothyroidism; hyperlipidemia. The patient is discharging back to [facility] in [place], [place]. Psychiatric and medical care to be provided by that facility. DISCHARGE MEDICATIONS: As follows: Tamsulosin 0.4 mg oral daily for BPH, atorvastatin calcium 20 mg a day for hyperlipidemia, losartan 25 mg oral daily for hypertension and kidney protection, Lyrica 75 mg oral twice daily for neuropathy, trazodone 75 mg oral at bedtime for sleep p.r.n., olanzapine 15 mg oral at bedtime for psychosis and mood stabilization, olanzapine 5 mg oral daily for psychosis and mood stabilization, latanoprost drops ophthalmic at 2.5 mL drops in each eye at bedtime for glaucoma I believe, levothyroxine 25 mcg oral daily for hypothyroidism, pyridoxine 100 mg oral daily for supplementation of vitamin B6, Depakote sodium 750 mg oral twice daily for mood stabilization, Lexapro 20 mg oral daily for depression, magnesium oxide 400 mg oral daily for supplementation. The patient's diet was regular. Recommend weekly blood sugar checks at this point. SIGNIFICANT LABORATORY DATA: On this admission, H and H 11.9/36.6, white count 8.9, platelet count 152,000. Most recent chemistries this admission on 01/11, sodium 136, potassium 4.8, chloride 103, bicarbonate 25, anion gap 8, BUN 22, creatinine 1.3, was previously 1.6, estimated GFR 57, glucose 78, calcium 9.3. Hemoglobin A1c 5.7. B12 levels of 94. TSH 1.504. Other laboratories this admission, COVID-19 Yang test on 01/08 was negative. Depakote level actually last one was 05/03/[address] [address] DISCHARGE SUMMARY Name: NORIS DANIELS Room #: 521B-B [facility] IN M.R.#: [id number] Admission: 01/08/21 Attend Phys: Kamaljit Rust DO Discharge: 01/11/21 Date of : 62 Report #: [id number] REASON FOR ADMISSION: Back on the 01/08, a 60-year-old male sent to us from the [facility]. He had brought to the Emergency Room apparently reported suicidal ideation related to his unhappiness with [facility]. HOSPITAL COURSE: The patient was admitted to Geriatric Psychiatry Unit. We had the patient previously I believe in 06/2020 and the reasons for admission seems similar. The patient does not feel he is getting adequate attention. He described to me as neglect and that they could take up to 30 minutes for his call lightto be responded to. The patient denied being physically abused, harm, threatened or other things that would warrant hotline- thus that there was no clear suspicion of abuse/neglect. The patient has engagement with a Traumatic Brain Injury organization and an advocate from that organization visited him while he was inpatient with us. On the day of discharge, he was not suicidal or homicidal. No meds prescribed since we did not make any medication changes in this admission, just environmental management. Temperature 36.1, pulse 70, respirations 18, BP 125/60, O2 sat 98%. Weight is 99.932 kilos, BMI 36.7. PHYSICAL EXAMINATION: Abnormal gait, uses walker, kyphotic, slightly unkempt. MENTAL STATUS EXAMINATION: This is a well-developed male appearing at least stated age. Attention fair. Concentration fair. Speech; slow delayed which is baseline. mood/affect- ok, euthymic, congruent Thought process; linear and goal directed. Thought content; focused on discharge, a little anxious about returning to the facility. Denies SI. Denies auditory or visual type hallucinations. Memory not formally tested. Insight limited. Judgment; fair to limited. Fund of knowledge likely below average. Prognosis for this patient is fair to guarded and will depend on his utilizing support systems available to him, seeking counseling and psychiatric followup, the patient is the decision maker. Activity level as tolerated, uses a walker to ambulate. DO SALUD Lui/LUIZA/FADI [facility] [address] [place] [address] DISCHARGE SUMMARY Name: NORIS DANIELS Room #: 521B-B DIS IN M.R.#: [id number] Admission: 01/08/21 Attend Phys: Kamaljit Rust DO Discharge: 01/11/21 Date of : 62 Report #: [id number] <ELECTRONICALLY SIGNED> By: Kamaljit Rust DO 01/12/219 1927 35 Kamaljit Rust DO /nt
== END 2021-01-11 11:30 | DRG 885 ==
LOC: SBH
PROVIDERS: Hospitalist; Nurse Practitioner; Nurse Practitioner Family; ADMIT Psychiatry & Neurology Psychiatry; ATTEND Psychiatry & Neurology Psychiatry
DX: F31.4 Bipolar disorder, current episode depressed, severe, without psychotic features (principal); N17.9 Acute kidney failure, unspecified; Z93.1 Gastrostomy status; R45.851 Suicidal ideations; E78.00 Pure hypercholesterolemia, unspecified; I10 Essential (primary) hypertension; E03.9 Hypothyroidism, unspecified; E78.5 Hyperlipidemia, unspecified; E66.9 Obesity, unspecified; E11.9 Type 2 diabetes mellitus without complications; N40.0 Benign prostatic hyperplasia without lower urinary tract symptoms; F41.9 Anxiety disorder, unspecified; E87.5 Hyperkalemia; Z79.899 Other long term (current) drug therapy; Z87.820 Personal history of traumatic brain injury; Z88.8 Allergy status to other drugs, medicaments and biological substances; Z68.36 Body mass index [BMI] 36.0-36.9, adult; Z87.891 Personal history of nicotine dependence
CPT/HCPCS: 10880